=== PATIENT | male | born 1980 | race Caucasian/White ===

== ENCOUNTER 2024-07-03 12:10 | Emergency (ER) | payer OTHER, SELFPAY ==
[2024-07-03 12:19] VITALS: BP 114/72
--- NOTE | 2024-07-03 12:25 | ED.GENMED ---
History of Present Illness
General
Chief Complaint: Flank Pain
Source: patient
Exam Limitations: none
Time Seen by Provider: 07/03/24 12:22
Nursing documentation reviewed up to this point in time: agreed with
History of Present Illness
History of Present Illness:
ptt is a 43 y/o M
h/o kidney stone 2 previous times
here with L lower abd pain this morning at 7 am
felt like he had to have BM
frequently has diarrhea, hasn't had GI work up for it
he tried to go but couldn't
pain intensified
worsening with nausea, vomiting x 1 episode
no fever
no hematuira
feels similar to previuos stones
doesn't know his urolgist name
Past History
Past History
ED Past Medical History: Other (kidney stone)
Social History
Tobacco: Non-smoker
Alcohol: None
Drug: None
Review of Systems
Review of Systems
Allergies reviewed?: Yes
All Other Systems: Not applicable
Phy Exam
Physical Exam
Physical Exam:
GENERAL: Alert, uncomfortable
Neck: supple
ent: dry mouth
CARDIAC: Regular rate and rhythm .
LUNGS: Clear breath sounds bilaterally, no acute respiratory distress, no wheezes/rales/rhonchi
ABDOMEN: Soft,tender LLQ no guarding/rebound
no hernias
normal inspec testicles
no flank tenderness;
NEUROLOGICAL: Alert and oriented, no focal neuro deficits
SKIN: Warm and dry, skin intact.
PSYCH: Normal and appropriate interaction.
Course
Orders/Labs/Results
Orders:
Orders
07/03/24 12:24
HYDROmorphone [Dilaudid] 1 mg IV NOW STA
Ketorolac [Toradol] 15 mg IV NOW STA
Ondansetron Injectable [Zofran] 4 mg IV NOW STA
07/03/24 12:25
CT Abd/pel Without Iv Or Oral Urgent
Comment:
Reason For Exam: L flank pain this morning
0.9% Sodium Chloride 1000 ml [Nss] 1,000 ml IV BOLUS
07/03/24 12:36
Complete Blood Count/With Diff Urgent
Comprehensive Metabolic Panel Urgent
07/03/24 13:20
Urinalysis Reflex To Culture Urgent
Date Specimen was Collected: 07/03/24
Time Specimen was Collected: 12:55
07/03/24 13:24
HYDROmorphone [Dilaudid] 0.5 mg IV NOW STA
Abnormal Lab Results
07/03/24
12:36
MCH 31.4 H pg
(27.0-31.0)
MPV 10.8 H fL
(7.4-10.4)
Absolute Neuts (auto) 7.6 H 10^3/uL
(1.4-6.5)
Neutrophils % 78.8 H %
(42.2-75.2)
Lymphocytes % 14.9 L %
(20.5-51.1)
07/03/24 12:36
07/03/24 12:36
Vital Signs
Initial and Last Documented VS:
Initial Vital Signs
BP
114/72
07/03/24 12:19
Last Documented Vital Signs
Temp Pulse Resp BP Pulse Ox
36.5 C 57 18 111/62 99
07/03/24 13:41 07/03/24 13:41 07/03/24 13:41 07/03/24 13:41 07/03/24 13:41
MDM/Problems Addressed
Differential Diagnosis Includes:
kidey stone, constpiation, colitis, msk, groin pain, divertic
MDM/Problems Addressed:
43-year-old male with history of kidney stones presents with pretty severe left lower quadrant pain. It started this morning after he woke up and he had the urge to defecate but could not. He does frequently have diarrhea throughout the day and
suspects he has IBS but has never been worked up. He has not had any blood in his stool or mucousy stools. Patient says this pain has intensified and comes and goes. It reminds him slightly of his kidney stones but it was a little bit different
because he now back pain. On exam he is very uncomfortable, tender to the left lower quadrant, no CVA tenderness, dry mouth. He was given IV fluids, Zofran and Dilaudid x 2, Toradol. His labs are reassuring with a normal white count, negative UA.
His CAT scan does not show any obstructive uropathy. It was without contrast because of his the suspicion of a kidney stone and thus potentially was limited in the bowel pathology however he has no significant findings. Given the patient's degree
of pain which is now controlled and his history of possible IBS this could be abdominal pain related to constipation. Recommended Bentyl for that. He however an early diverticulitis is also or considered, also colitis. Will at this point consider
giving Augmentin for holding if the patient gets worse after 24 hours of clear liquids he can start that. I do spoke with the ED attending Dr. Joselyn Johnson who agreed. Will also reach out to GI so that he can be promptly evaluated as well. He likely
needs a colonoscopy for his chronic issues
I did not speak with the patient regarding his pulmonary nodule in person but I did call and leave a message regarding this and it was sent to the nodule board
*Critical Care Note
Total Time (30-74mins, 75-104mins- exclusive of procedures): Not Applicable
ED Attending Note
-
Portions of this chart may have been created with voice recognition software.� Occasional wrong word or��sound alike� substitutions may have occurred due to the inherent limitations of voice recognition software.
Discharge Plan
Departure
Patient Disposition: Home (Routine Discharge)
Date of Disposition: 07/03/24
Time of Disposition: 14:02
Patient with high blood pressure during this ER visit?: No
Condition: Fair
Covid-19: Not Applicable
Discharge Problem:
Abdominal pain
Instructions: Abdominal Pain
Prescriptions:
New
dicyclomine 20 mg tablet
20 mg PO TID PRN (Reason: ABDOMINAL PAIN) Qty: 12 0RF
amoxicillin-pot clavulanate 875-125 mg tablet
1 tab PO BID Qty: 14 0RF
Referrals:
Bryant Gomez MD [Active] - Follow up in 5-7 days
Joseph Seaman MD [Family Provider] -
Activity Restrictions/Additional Instructions:
YOUR CAT SCAN SHOWED GALLSTONES AND A SMALL PULMONARY NODULE
THESE ARE INCIDENTAL AND NOT CAUSING YOUR SYPMTOMS
[facility] FAM[facility] DOCTOR FOR THIS
FOR NOW
CLEAR LIQUIDS FOR 24 HOURS
BLAND DIET TOMORROW TOLERATD
TYLENOL AND MOTRIN FOR PAIN
IF PAIN W ORSE TRY BENTYL 20 MG 3 TIMES A DAY
IF DIARRHEA OR WORSE PAIN YOU CAN CONSIDER AUGMENTIN IN CASE YOU HAVE INFLAMMATION IN YOUR COLON OR DIVERTICULITIS THAT WAS TOO SMALL TO SEE
RETURN FOR: SEVERE PAIN FEVER, VOMITING, BLOODY DIARRHEA ETC
Interventions
Interventions:
*Risk Screen - Suicide Last Done: 07/03/24 12:37
*General Assessment Last Done: 07/03/24 12:37
*Neglect/Abuse Screening Last Done: 07/03/24 12:37
ED- Fall Risk Assessment Last Done: 07/03/24 12:42
*ED COVID-19 Vaccine History Last Done: 07/03/24 12:37
*Nursing Disposition Last Done: 07/03/24 14:18
SQ-Wczugi-Pdunadvxnk Assessment Last Done: 07/03/24 12:43
ED-Male Genitourinary Assessment Last Done: 07/03/24 12:43
Discharge Date and Time
Discharge Date/Time: 07/03/24 14:18
Print Language: MACEDONIAN
[2024-07-03] MEDS: TORADOL 15 MG IV (12:31)
[2024-07-03] MEDS: ZOFRAN 4 MG IV (12:31)
[2024-07-03] MEDS: NSS 1000 IV (12:32)
[2024-07-03] MEDS: DILAUDID 1 MG IV (12:32)
[2024-07-03 12:47] LABS: % Basophils 0.3 % (0-2); % Eosinophils 0.1 % (0-6); % Immature Granulocytes 0.3 % (0-0.5); % Lymphocytes 14.9 % (20.5-51.1); % Monocytes 5.6 % (1.7-9.3); % Neutrophils 78.8 % (42.2-75.2); Absolute Lymphocytes 1.4 10^3/uL (1.2-3.4); Absolute Monocytes 0.5 10^3/uL (0.1-0.6); Absolute Neutrophils 7.6 10^3/uL (1.4-6.5); Hematocrit 42.9 % (39.0-52.0); Hemoglobin 14.8 g/dL (13.0-18.0); Mean Corp Hgb Conc. 34.5 g/dL (33.0-37.0); Mean Corpuscular Hgb 31.4 pg (27.0-31.0); Mean Corpuscular Volume 90.9 fL (80.0-94.0); Mean Platelet Volume 10.8 fL (7.4-10.4); Nucleated Red Blood Cells % 0 % (-); Platelet Count 188 10^3/uL (130-400); Red Blood Cell Count 4.72 10^6/uL (4.70-6.10); Red Cell Dist. Width 12.8 % (11.5-14.5); White Blood Cell Count 9.7 10^3/uL (4.8-10.8)
[2024-07-03 13:05] LABS: ALT (SGPT) 31 U/L (0-50); AST (SGOT) 29 U/L (17-59); Albumin 4.7 g/dl (3.5-5.0); Alkaline Phosphatase 47 U/L (38-126); Blood Urea Nitrogen 15 mg/dl (9-20); Calcium 9.9 mg/dl (8.4-10.2); Carbon Dioxide 29 mmol/L (22-30); Chloride 103 mmol/L (98-107); Glucose 98 mg/dl (70-99); Potassium 4.7 mmol/L (3.5-5.1); Sodium 142 mmol/L (135-145); Total Bilirubin 0.6 mg/dl (0.2-1.3); Total Protein 7.3 g/dl (6.3-8.2); eGFR > 60.00
[2024-07-03] MEDS: DILAUDID 0.5 MG IV (13:27)
[2024-07-03 13:33] LABS: Urine Albumin Negative (Neg - Trace); Urine Bilirubin Negative (Negative); Urine Character Clear (Clear); Urine Color Yellow; Urine Glucose Negative (Negative); Urine Ketone Negative (Negative); Urine Leukocyte Negative (Negative); Urine Nitrite Negative (Negative); Urine Occult Blood Negative (Negative); Urine Urobilinogen Negative (Neg - 1+)
[2024-07-03 13:41] VITALS: BP 111/62
== END 2024-07-03 14:18 | disposition home or self-care (01) ==
LOC: EMR 12:10
PROVIDERS: Physician Assistant; EMERGENCY PHYSICIAN Emergency Medicine; FAMILY PHYSICIAN Internal Medicine
DX: R10.32 Left lower quadrant pain (principal); R19.7 Diarrhea, unspecified; Z87.442 Personal history of urinary calculi; R91.1 Solitary pulmonary nodule
CPT/HCPCS: 96374; 96375; 96376; 96361; 99284; 74176; 80053; 81003; 85025